=== PATIENT | female | born 1940 | race Caucasian/White ===

== ENCOUNTER 2018-12-31 14:19 | Outpatient (CLI) | payer MEDICARE ==
--- NOTE | 2018-12-31 15:45 | RAD ---
Exam: 4 views cervical spine HISTORY: Follow-up fracture. COMPARISON: 02/27/2018 FINDINGS: Predental space is normal. No prevertebral soft tissue swelling. There is diffuse bone demineralizati on Limited evaluation odontoid process and lateral masses of C1 and C2 on the open-mouth projection. On the AP projection, there is mild facet hypertrophy. On the lateral projection, cervical spine is evaluated from C1 through the cervicothoracic junction. Vertebral body height is maintained. No fracture. Mild degenerative disc disease at C4-C5 and C6-C7. Moderate degenerative change at C5-C6. IMPRESSION: No radiographic evidence of fracture. Correlate clinically.
== END 2018-12-31 14:20 | disposition home or self-care (01) ==
LOC: TBSIIMAG 14:19
PROVIDERS: ATTEND Neurological Surgery
DX: S12.9XXA Fracture of neck, unspecified, initial encounter (principal)
CPT/HCPCS: 72040

== ENCOUNTER 2019-01-28 09:04 | Outpatient (CLI) | payer MEDICARE ==
--- NOTE | 2019-01-28 11:12 | RAD ---
CERVICAL SPINE TWO VIEWS: History: S12.9XXA Comparison: 12-31-18 FINDINGS: Exam is very limited technically with the head being considerably cocked to the side. There is signif icant bony demineralization. C1 odontoid regions are obscured on the AP view. No significant preverte bral soft tissue swelling. Generalized spondylosis. IMPRESSION: Bone demineralization with generalized spondylosis. Stable from prior study. Limited exam. POS: [facility]
== END 2019-01-28 09:05 | disposition home or self-care (01) ==
LOC: TBSIIMAG 09:04
PROVIDERS: ATTEND Neurological Surgery
DX: S12.9XXA Fracture of neck, unspecified, initial encounter (principal); M47.812 Spondylosis without myelopathy or radiculopathy, cervical region
CPT/HCPCS: 72040

== ENCOUNTER 2019-03-05 14:19 | Outpatient (CLI) | payer MEDICARE ==
--- NOTE | 2019-03-05 14:56 | RAD ---
CERVICAL SPINE AP LATERAL STANDARD 03/05/19 HISTORY: S12.9XXA - cervical fracture. COMPARISON: Radiograph of 01/28/19. FINDINGS: The exam is limited due to rightward deviation of the neck. Multilevel degenerative disc space height loss. No acute fracture is appreciated. The visualized posterior ribs are unremarkable. Multilevel facet arthrosis. IMPRESSION: Similar examination of the neck. POS: [facility]
== END 2019-03-05 14:20 | disposition home or self-care (01) ==
LOC: TBSIIMAG 14:19
PROVIDERS: ATTEND Neurological Surgery
DX: S12.9XXA Fracture of neck, unspecified, initial encounter (principal)
CPT/HCPCS: 72040